=== PATIENT | female | born 1990 | race Caucasian/White ===

== ENCOUNTER 2017-10-16 12:31 | Emergency (ER) | payer BC ==
[~2017-10-16] VITALS: Ht 182.9 cm; Wt 125.0 kg
[2017-10-16 15:20] VITALS: BP 152/89
== END 2017-10-16 15:34 | disposition home or self-care (01) ==
LOC: ED 15:28
DX: K62.5 Hemorrhage of anus and rectum (principal)
CPT/HCPCS: 99284